=== PATIENT | female | born 1945 | race Caucasian/White ===

== ENCOUNTER → 2020-09-21 | Outpatient (CLI) | payer OTHER ==
[~2020-09-21] MED LIST: AMLO5; ASCO500 PO; ASPI81CH PO; ATOR10 PO; CHLO25B PO; CYAN1000I PO; ERYT333ERA PO; ESTMEDA; GLIM2; GLIM4 PO; HYDACE5 PO; LEVFLO500 PO; LEVSOD100; LEVSOD88 PO; LOSA50; LOSA50 PO; METF500 PO; METO100ER; METO25 PO; Micro-K10 MEQ PO; Norvasc2.5 MG PO; ONGLYZA5 MG PO; PIOG15 PO; RXHYDACE PO; TRIHYD; TRIHYD253A PO
== END | disposition home or self-care (01) ==
LOC: LAB SHORT 10:53 → LAB 10:53
DX: E11.22 Type 2 diabetes mellitus with diabetic chronic kidney disease (principal); N18.9 Chronic kidney disease, unspecified
CPT/HCPCS: 83880

== ENCOUNTER 2021-05-16 10:49 | Inpatient (IN) | payer OTHER ==
[~2021-05-16] VITALS: Ht 157.5 cm; Wt 100.7 kg
[~2021-05-16 10:49] MED LIST changes: -ASPI81CH PO; -ATOR10 PO; -LEVSOD88 PO; -LOSA50 PO; -Norvasc2.5 MG PO
[2021-05-16 11:15] LABS: Source, Urine Catheter
[2021-05-16 11:35] LABS: BASOPHILS ABSOLUTE AUTO 0.11 K/mm3 (0.00-0.23); BASOPHILS PERCENT AUTO 1 % (0-2); EOSINOPHILS ABSOLUTE AUTO 0.55 K/mm3 (0.00-0.68); EOSINOPHILS PERCENT AUTO 3 % (0-6); Hematocrit 36.8 % (33.0-51.0); Hemoglobin 12.4 g/dL (11.5-16.0); IMMATURE GRAN ABSOLUTE AUTO 0.16 K/mm3 (0.00-0.10); IMMATURE GRAN PERCENT AUTO 1 % (0-1); LYMPHOCYTES ABSOLUTE AUTO 3.77 K/mm3 (0.84-5.20); LYMPHOCYTES PERCENT AUTO 19 % (21-46); MONOCYTES ABSOLUTE AUTO 0.83 K/mm3 (0.16-1.47); MONOCYTES PERCENT AUTO 4 % (4-13); Mean Corpuscular HGB 31.6 pg (26.0-34.0); Mean Corpuscular HGB Conc 33.7 g/dL (31.5-36.5); Mean Corpuscular Volume 94 fL (80-100); Mean Platelet Volume 10.8 fL (9.1-12.4); NEUTROPHILS ABSOLUTE AUTO 14.69 K/mm3 (1.96-9.15); NEUTROPHILS PERCENT AUTO 73 % (41-73); Platelet Count 277 K/mm3 (150-400); RDW Coefficient Variation 11.9 % (11.7-14.2); RDW Standard Deviation 40.8 fL (35.1-46.3); Red Blood Cell Count 3.92 M/mm3 (3.80-5.20); White Blood Cell Count 20.11 K/mm3 (4.00-11.30)
[2021-05-16 11:40] LABS: Appearance, Urine Cloudy (Clear); Bilirubin, Urine Neg (Neg); Blood, Urine 5+ (Neg); Color, Urine Yellow (P-Yellow); Glucose Qualitative, Urine Neg (Neg); Ketones, Urine Neg (Neg); Leukocyte Esterase, Urine 3+ (Neg); Nitrite, Urine Pos (Neg); Protein, Urine 4+ (Neg); Urobilinogen, Urine NORM (Normal)
[2021-05-16 11:55] LABS: White Blood Cells, Urine TNTC /hpf (0-5)
[2021-05-16 11:58] LABS: Bacteria Many /hpf; Squamous Epithelial Cells Few /hpf (Few)
[2021-05-16 12:13] LABS: Albumin/Globulin Ratio 0.7 (0.8-1.8); Bilirubin, Total 0.5 mg/dL (0.1-1.0); Bun/Creatinine Ratio 15.4 (12.0-20.0); Calcium, Blood 10.8 mg/dL (8.5-10.1); Creatinine, Blood 2.66 mg/dL (0.40-1.00); Globulin, Blood 4.6 g/dL (2.2-4.0); Potassium, Blood 3.9 mmol/L (3.5-5.5); Total Protein, Blood 7.6 g/dL (6.4-8.2)
[2021-05-16] MEDS ORDERED: INSULANI SC (13:26)
[2021-05-16] MEDS ORDERED: AMLO5 PO (13:27)
[2021-05-16] MEDS ORDERED: CALCITRIOL0.25 MC4 PO (13:28)
[2021-05-16] MEDS ORDERED: LEVSOD88 PO (13:29)
[2021-05-16] MEDS ORDERED: HYDCHL12.5 PO (13:29)
[2021-05-16] MEDS ORDERED: LOSA50 PO (13:30)
[2021-05-16] MEDS ORDERED: GLIP10 PO (13:35)
[2021-05-16] MEDS ORDERED: ATOR10 PO (13:35)
[2021-05-16] MEDS ORDERED: SITA25T2 PO (13:36)
[2021-05-16] MEDS ORDERED: Aspir 8181 MG PO (14:33)
--- NOTE | 2021-05-16 15:30 | NUR ---
Assumed care. Report received from WEB UI DEVELOPER. Pt arrived from ER, transferred to ICU bed without difficulty. Patient is alert and oriented, pleasant and cooperative. Pt is on room air. IV access in R/arm, 20GA A/C, 22GA L/forearm. NS started at 100 ml/hr. Pt denies any pain at this time. Pt hypertensive, PRN labetolol, 10mg IV given. No other acute needs, will continue to monitor. at bedside at time of admit.
--- NOTE | 2021-05-16 18:25 | NUR ---
Shift summary. Pt continues in bed, on room air. IV sites 20GA right A/C, 22GA R/forearm. IV pump running NS 100 ml/hr. Pt resting quietly, arouses easily and is able to use call light. No acute needs at this time, will continue to monitor and report off to nightshift RN.
--- NOTE | 2021-05-16 19:21 | NUR ---
Assumed Care Note: Pt sleeping comfortably with no signs of pain. AOx4, pleasant and cooperative. Upon start of shift, BP have been running high with SBP in the 170 - 180, gave 10mg of Hydralazine.
[2021-05-17 03:28] LABS: BASOPHILS ABSOLUTE AUTO 0.13 K/mm3 (0.00-0.23); BASOPHILS PERCENT AUTO 0 % (0-2); Hematocrit 32.6 % (33.0-51.0); LYMPHOCYTES ABSOLUTE AUTO 1.78 K/mm3 (0.84-5.20); LYMPHOCYTES PERCENT AUTO 4 % (21-46); MONOCYTES ABSOLUTE AUTO 2.74 K/mm3 (0.16-1.47); MONOCYTES PERCENT AUTO 7 % (4-13); Mean Corpuscular HGB 31.9 pg (26.0-34.0); Mean Corpuscular HGB Conc 33.7 g/dL (31.5-36.5); Mean Corpuscular Volume 95 fL (80-100); RDW Coefficient Variation 12.3 % (11.7-14.2); RDW Standard Deviation 42.5 fL (35.1-46.3); Red Blood Cell Count 3.45 M/mm3 (3.80-5.20); White Blood Cell Count 40.24 K/mm3 (4.00-11.30)
[2021-05-17 03:31] LABS: EOSINOPHILS ABSOLUTE AUTO 0.01 K/mm3 (0.00-0.68); EOSINOPHILS PERCENT AUTO 0 % (0-6); IMMATURE GRAN ABSOLUTE AUTO 0.81 K/mm3 (0.00-0.10); IMMATURE GRAN PERCENT AUTO 2 % (0-1); Mean Platelet Volume 11.1 fL (9.1-12.4); NEUTROPHILS ABSOLUTE AUTO 34.77 K/mm3 (1.96-9.15); NEUTROPHILS PERCENT AUTO 87 % (41-73); Platelet Count 184 K/mm3 (150-400)
[2021-05-17 03:48] LABS: Albumin, Blood 2.3 g/dL (3.4-5.0); Albumin/Globulin Ratio 0.6 (0.8-1.8); Bilirubin, Total 0.5 mg/dL (0.1-1.0); Bun/Creatinine Ratio 15.1 (12.0-20.0); Creatinine, Blood 2.98 mg/dL (0.40-1.00); Globulin, Blood 4.1 g/dL (2.2-4.0); Magnesium, Blood 1.3 mg/dL (1.6-2.4); Potassium, Blood 4.3 mmol/L (3.5-5.5); Total Protein, Blood 6.4 g/dL (6.4-8.2)
--- NOTE | 2021-05-17 05:38 | NUR ---
END OF SHIFT SUMMARY NOTE: Pt slept well until midnight where pt complained of pain in her right flank area and right back side. Gave PRN pain meds but did not seem to help, BP steadily climbed with pain. MD notified regarding HTN and pain. Gave 2 mg of Dilaudid which helped. Pt able to void with 1x assist to the commode. Remains cooperative and pleasant.
--- NOTE | 2021-05-17 07:15 | NUR ---
Assumed care. Report received from nightshift RN. Pt resting quietly in bed. On room air. Alert and oriented, able to use call light. Pt has IV access in R/arm 20GA AC, 22GA forearm. IV pump running NS at 100ml/hr. No acute needs at this time, will continue to monitor.
[2021-05-17] MEDS ORDERED: TORSE20 PO (08:44)
[2021-05-17] MEDS ORDERED: POTA10T PO (08:44)
[2021-05-17] MEDS ORDERED: VITAMIN D310 MC4 PO (08:45)
[2021-05-17] MEDS ORDERED: ACET500 PO (08:46)
[2021-05-17] MEDS ORDERED: METAMUCIL POWD798 GM PO (08:46)
--- NOTE | 2021-05-17 12:11 | NUR ---
Spiritual care visit conducted. I provide prayer and therapeutic listening. Patient responds well and shows signs of reudced stress.
--- NOTE | 2021-05-17 12:13 | NUR ---
Spiritual care visit conducted. Patient shares about her daughter battling cancer, her 's recent back surgery and her concerns going forward. I provide therapeutic listening, gentle consumer credit counselor and prayer. Patient responds well and shows signs of increased peace.
--- NOTE | 2021-05-17 18:33 | NUR ---
Shift summary. Pt continues in bed, on room air. Pt up to bedside commode throughout shift. Alert and oriented, able to use call light and communicate needs easily. Pt has IV in R/foream, inserted this shift, other IVs discontinued. IV pump running NS at 100 ml/hr. Pt still hypertensive during shift but BP decreased after PO and PRN BP medications. Current BP 150s systolic. See shift assessment for details. Will continue to monitor and report off to nightshift RN.
--- NOTE | 2021-05-17 19:00 | NUR ---
ASSUME CARE: PT LYING IN BED AND WATCHING TV. SHE IS A&O X 4 AND PLEASANT WITH NO CURRENT COMPLAINTS OR CONCERNS. SHE IS SATING >95% ON RA. HR IS IN THE 80'S AND BP IS CURRENTLY HIGH W/ SBP>170. SHE IS DUE FOR PO HTN MEDS AT 2100 SO WILL REASSESS NEED FOR HTN PRN'S. SHE NEEDS STANDY-BY ASSIST TO THE BATHROOM AND HAD AN OUTPUT OF 100ML OF CLEAR YELLOW URINE BUT NO BM. SOME BRUISING NOTED TO HER RIGHT ARM AND RIGHT LOWER ABDOMEN BUT OTHERWISE SKIN IS WARM, DRY, AND INTACT. NS IS INFUSING AT 100ML/HR. SEE SHIFT ASSESSMENT FOR DETAILS.
[2021-05-18 03:25] LABS: Hematocrit 29.9 % (33.0-51.0); Hemoglobin 9.7 g/dL (11.5-16.0); Mean Corpuscular HGB Conc 32.4 g/dL (31.5-36.5); Mean Corpuscular Volume 96 fL (80-100); Mean Platelet Volume 10.8 fL (9.1-12.4); Platelet Count 201 K/mm3 (150-400); RDW Coefficient Variation 12.3 % (11.7-14.2); RDW Standard Deviation 43.1 fL (35.1-46.3); Red Blood Cell Count 3.13 M/mm3 (3.80-5.20); White Blood Cell Count 26.46 K/mm3 (4.00-11.30)
[2021-05-18 03:47] LABS: Anion Gap 7 mmol/L (6-16); Blood Urea Nitrogen 53 mg/dL (8-24); Bun/Creatinine Ratio 16.1 (12.0-20.0); CO2, Blood 20 mmol/L (21-32); Calcium, Blood 9.6 mg/dL (8.5-10.1); Chloride, Blood 109 mmol/L (98-108); Creatinine, Blood 3.29 mg/dL (0.40-1.00); Glomerular Filtration Rate 14 (60-); Glucose, Blood 169 mg/dL (70-99); Phosphorus, Blood 3.6 mg/dL (2.5-4.9); Sodium, Blood 136 mmol/L (136-145)
--- NOTE | 2021-05-18 07:09 | NUR ---
SHIFT SUMMARY: PT LYING IN BED W/ EYES CLOSED APPEARING TO BE RESTING COMFORTABLY. SHE IS EASILY AROUSABLE AND A&OX3. ON ROOM AIR SHE IS SATING 95%. HR IS IN THE 70'S AND SBP <180. NS CONTINUES TO INFUSE AT 100ML/HR. GAVE FENTANYL PRN ONCE OVERNIGHT FOR RIGHT LOWER ABDOMINAL PAIN AND SHE STATES IT RELIEVED HER PAIN. REPORT GIVEN TO AM NURSE.
--- NOTE | 2021-05-18 09:26 | NUR ---
Assumed care of Pt: AOx4, denies P/N/V, vss except some HTN, PO HTN meds due, will recheck after.
--- NOTE | 2021-05-18 17:43 | NUR ---
AOX4, denies N/V, complains 5/10 R abd pain resolved with 25mcg fent, good appetite, denies SOB, lungs clear/dim, +2 pulses, NSR 80s, BP difficult to manage this shift HTN, 10mg PO hydralazine and PO 10mg/10mg labetelol/torsemide PO order/early metoprolol order and BP still 170/180s SBP MD aware, adequate UOP up to toilet clear yellow.
--- NOTE | 2021-05-19 03:47 | NUR ---
SHIFT SUMMARY: PT HAD RESTFUL SHIFT, TELE OFF, VSS, ABLE TO VERBALIZE NEEDS AND USES CALL LIGHT APPROPRIATELY TO CALL FOR ASSISTANCE TO BSC. NO C/O PAIN OR DISCOMFORT THIS SHIFT, BED LOCKED AND LOW, CALL FERRELL IN REACH. DENZEL BENITES
[2021-05-19 04:01] LABS: Hematocrit 30.8 % (33.0-51.0); Hemoglobin 10.2 g/dL (11.5-16.0); Mean Corpuscular HGB 31.3 pg (26.0-34.0); Mean Corpuscular HGB Conc 33.1 g/dL (31.5-36.5); Mean Corpuscular Volume 95 fL (80-100); Mean Platelet Volume 11.2 fL (9.1-12.4); Platelet Count 238 K/mm3 (150-400); Red Blood Cell Count 3.26 M/mm3 (3.80-5.20); White Blood Cell Count 18.63 K/mm3 (4.00-11.30)
[2021-05-19 04:32] LABS: Albumin, Blood 2.2 g/dL (3.4-5.0); Anion Gap 7 mmol/L (6-16); Blood Urea Nitrogen 52 mg/dL (8-24); Bun/Creatinine Ratio 18.2 (12.0-20.0); CO2, Blood 23 mmol/L (21-32); Chloride, Blood 111 mmol/L (98-108); Creatinine, Blood 2.86 mg/dL (0.40-1.00); Glomerular Filtration Rate 16 (60-); Glucose, Blood 114 mg/dL (70-99); Magnesium, Blood 1.9 mg/dL (1.6-2.4); Phosphorus, Blood 3.4 mg/dL (2.5-4.9); Potassium, Blood 3.9 mmol/L (3.5-5.5); Sodium, Blood 141 mmol/L (136-145)
--- NOTE | 2021-05-19 06:29 | NUR ---
PT MEDICATED WITH PRN MED FOR HTN, SEE MAR AND VS FLOW SHEET. PT HAD GOOD RESULTS AFTER IV HYDRALAZINE, PT PLACED BACK ON TELE FOR IV MED ADMINISTRATION. DENZEL SCHRADER
--- NOTE | 2021-05-19 19:30 | NUR ---
ASSUMPTION OF CARE RECEIVED REPORT FROM AZRA RN. ASSUMED CARE OF PATIENT. PATIENT IN BED WITH EYES CLOSED, NO S/S OF DISTRESS. CALL LIGHT IN REACH. WILL REVIEW ORDERS AND TREAT PRESCRIBED.
--- NOTE | 2021-05-20 02:18 | NUR ---
UPDATE PATIENT IN BED WITH EYES CLOSED, EASILY AWAKENS TO VERBAL STIMULI. NO S/S OF DISTRESS. CALL LIGHT IN REACH.
--- NOTE | 2021-05-20 06:32 | NUR ---
SHIFT SUMMARY PATIENT A/O, DENIED DISCOMFORTS THROUGH SHIFT. AMBULATES INDEPENDENTLY WITH STEADY GAIT TO TOILET AND AROUND ROOM. RESTED FOR SEVERAL HOURS COMFORTABLY. HYDRALAZINE IV GIVEN TWICE FOR SBP GREATER THAN 170. WILL CONTINUE TO MONITOR AND REPORT TO ONCOMING RN.
[2021-05-20 08:43] LABS: Hematocrit 37.7 % (33.0-51.0); Hemoglobin 12.7 g/dL (11.5-16.0); Mean Corpuscular HGB 31.8 pg (26.0-34.0); Mean Corpuscular HGB Conc 33.7 g/dL (31.5-36.5); Mean Corpuscular Volume 95 fL (80-100); Platelet Count 318 K/mm3 (150-400); RDW Coefficient Variation 12.1 % (11.7-14.2); RDW Standard Deviation 42.5 fL (35.1-46.3); Red Blood Cell Count 3.99 M/mm3 (3.80-5.20); White Blood Cell Count 14.14 K/mm3 (4.00-11.30)
[2021-05-20 09:06] LABS: Albumin, Blood 2.7 g/dL (3.4-5.0); Anion Gap 4 mmol/L (6-16); Blood Urea Nitrogen 49 mg/dL (8-24); CO2, Blood 25 mmol/L (21-32); Calcium, Blood 10.8 mg/dL (8.5-10.1); Chloride, Blood 110 mmol/L (98-108); Creatinine, Blood 2.33 mg/dL (0.40-1.00); Glomerular Filtration Rate 20 (60-); Glucose, Blood 118 mg/dL (70-99); Potassium, Blood 4.3 mmol/L (3.5-5.5); Sodium, Blood 139 mmol/L (136-145)
[2021-05-20] MEDS ORDERED: HYDR10 PO (13:11)
[2021-05-20] MEDS ORDERED: METO50 PO (13:13)
[2021-05-20] MEDS ORDERED: VISBIOME 112.51 EACH PO (13:14)
[2021-05-20] MEDS ORDERED: CIPR500 PO (13:16)
== END 2021-05-20 13:30 | disposition home or self-care (01) | DRG 872 ==
LOC: ER 10:49 → ICUW 13:35
PROVIDERS: Emergency Medicine; Nurse Practitioner Acute Care; ADMIT Internal Medicine
DX: A41.51 Sepsis due to Escherichia coli [E. coli] (principal); N13.6 Pyonephrosis; N18.4 Chronic kidney disease, stage 4 (severe); E87.2 Acidosis; N17.9 Acute kidney failure, unspecified; I16.0 Hypertensive urgency; E11.22 Type 2 diabetes mellitus with diabetic chronic kidney disease; R65.20 Severe sepsis without septic shock; Z68.36 Body mass index [BMI] 36.0-36.9, adult; E83.42 Hypomagnesemia; E66.01 Morbid (severe) obesity due to excess calories; E03.9 Hypothyroidism, unspecified; E78.5 Hyperlipidemia, unspecified; E55.9 Vitamin D deficiency, unspecified; I12.9 Hypertensive chronic kidney disease with stage 1 through stage 4 chronic kidney disease, or unspecified chronic kidney disease; Z98.890 Other specified postprocedural states; Z88.0 Allergy status to penicillin; Z88.1 Allergy status to other antibiotic agents; Z88.5 Allergy status to narcotic agent; Z88.8 Allergy status to other drugs, medicaments and biological substances; Z79.899 Other long term (current) drug therapy
CPT/HCPCS: 36415; 51701; 74176; 80053; 80069; 81001; 82947; 83605; 83735; 85025; 85027; 87040; 87077; 87086; 87186; 96361-59; 96365-59; 96375-59; 97110; 97161; 99285-25; A9270; J0360; J0696; J1170; J1644; J1815; J2405; J2550; J3010; J7030

== ENCOUNTER 2021-05-20 22:21 | Inpatient (IN) | payer OTHER ==
[~2021-05-20] VITALS: Ht 157.5 cm; Wt 90.7 kg
[~2021-05-20 22:21] MED LIST changes: +ACET500 PO; +AMLO5 PO; +ATOR10 PO; +Aspir 8181 MG PO; +CALCITRIOL0.25 MC4 PO; +CIPR500 PO; +GLIP10 PO; +HYDCHL12.5 PO; +HYDR10 PO; +INSULANI SC; +LEVSOD88 PO; +LOSA50 PO; +METAMUCIL POWD798 GM PO; +METO50 PO; +POTA10T PO; +SITA25T2 PO; +TORSE20 PO; +VISBIOME 112.51 EACH PO; +VITAMIN D310 MC4 PO
[2021-05-21 01:12] LABS: BASOPHILS ABSOLUTE AUTO 0.14 K/mm3 (0.00-0.23); BASOPHILS PERCENT AUTO 1 % (0-2); EOSINOPHILS ABSOLUTE AUTO 0.29 K/mm3 (0.00-0.68); EOSINOPHILS PERCENT AUTO 2 % (0-6); Hematocrit 34.9 % (33.0-51.0); Hemoglobin 11.9 g/dL (11.5-16.0); IMMATURE GRAN PERCENT AUTO 3 % (0-1); LYMPHOCYTES ABSOLUTE AUTO 2.41 K/mm3 (0.84-5.20); LYMPHOCYTES PERCENT AUTO 15 % (21-46); MONOCYTES ABSOLUTE AUTO 1.42 K/mm3 (0.16-1.47); MONOCYTES PERCENT AUTO 9 % (4-13); Mean Corpuscular HGB 31.8 pg (26.0-34.0); Mean Corpuscular HGB Conc 34.1 g/dL (31.5-36.5); Mean Corpuscular Volume 93 fL (80-100); Mean Platelet Volume 10.2 fL (9.1-12.4); NEUTROPHILS ABSOLUTE AUTO 11.37 K/mm3 (1.96-9.15); NEUTROPHILS PERCENT AUTO 71 % (41-73); Platelet Count 283 K/mm3 (150-400); RDW Coefficient Variation 12.1 % (11.7-14.2); RDW Standard Deviation 41.3 fL (35.1-46.3); Red Blood Cell Count 3.74 M/mm3 (3.80-5.20); White Blood Cell Count 16.13 K/mm3 (4.00-11.30)
[2021-05-21 01:32] LABS: Albumin, Blood 2.8 g/dL (3.4-5.0); Albumin/Globulin Ratio 0.6 (0.8-1.8); Bilirubin, Total 0.4 mg/dL (0.1-1.0); Calcium, Blood 10.5 mg/dL (8.5-10.1); Creatinine, Blood 2.83 mg/dL (0.40-1.00); Globulin, Blood 4.7 g/dL (2.2-4.0); Total Protein, Blood 7.5 g/dL (6.4-8.2)
[2021-05-21 05:35] LABS: BASOPHILS ABSOLUTE AUTO 0.14 K/mm3 (0.00-0.23); BASOPHILS PERCENT AUTO 1 % (0-2); EOSINOPHILS ABSOLUTE AUTO 0.45 K/mm3 (0.00-0.68); EOSINOPHILS PERCENT AUTO 3 % (0-6); Hemoglobin 11.2 g/dL (11.5-16.0); IMMATURE GRAN ABSOLUTE AUTO 0.46 K/mm3 (0.00-0.10); IMMATURE GRAN PERCENT AUTO 3 % (0-1); LYMPHOCYTES ABSOLUTE AUTO 1.78 K/mm3 (0.84-5.20); LYMPHOCYTES PERCENT AUTO 12 % (21-46); MONOCYTES ABSOLUTE AUTO 1.51 K/mm3 (0.16-1.47); MONOCYTES PERCENT AUTO 10 % (4-13); Mean Corpuscular HGB Conc 32.9 g/dL (31.5-36.5); Mean Corpuscular Volume 94 fL (80-100); Mean Platelet Volume 10.4 fL (9.1-12.4); NEUTROPHILS PERCENT AUTO 71 % (41-73); Platelet Count 266 K/mm3 (150-400); RDW Coefficient Variation 12.1 % (11.7-14.2); RDW Standard Deviation 41.8 fL (35.1-46.3); Red Blood Cell Count 3.61 M/mm3 (3.80-5.20); White Blood Cell Count 15.14 K/mm3 (4.00-11.30)
[2021-05-21 05:52] LABS: Albumin, Blood 2.5 g/dL (3.4-5.0); Albumin/Globulin Ratio 0.6 (0.8-1.8); Bilirubin, Total 0.3 mg/dL (0.1-1.0); Bun/Creatinine Ratio 16.8 (12.0-20.0); Calcium, Blood 10.3 mg/dL (8.5-10.1); Creatinine, Blood 3.03 mg/dL (0.40-1.00); Globulin, Blood 4.5 g/dL (2.2-4.0); Potassium, Blood 3.8 mmol/L (3.5-5.5)
--- NOTE | 2021-05-21 17:28 | NUR ---
DAY SHIFT SUMMARY/ADMIT PT ADMITTED TO MED FLOOR FROM ED, ARRIVED WITH . ORIENTED TO ROOM AND SURROUNDINGS. PLEASANT, ALERT, ORIENTED, INDEPENDENT IN ROOM. ARRIVED TO ED D/T RT FLANK PAIN, DENIES ANY PAIN AT THIS TIME. DENIES ANY SOB. STARTED ON TELE, CURRENTLY SINUS/SANDRA AT 58 PER VICE PRESIDENT NETWORK DEVELOPMENT.
--- NOTE | 2021-05-22 03:59 | NUR ---
SHIFT SUMMARY NO ACUTE CHANGES TO REPORT THIS SHIFT. IV ANTIBIOTICS PER ORDERS. PT MEDICATED FOR CHRONIC RIGHT HIP PAIN. PT HAS RESTED MOST OF THE NIGHT AND HAS DENIED NEEDS. INDEPENDENT IN THE ROOM. BED IN LOWEST POSITION, CALL LIGHT WITHIN REACH.
[2021-05-22 04:40] LABS: BASOPHILS ABSOLUTE AUTO 0.17 K/mm3 (0.00-0.23); BASOPHILS PERCENT AUTO 1 % (0-2); EOSINOPHILS ABSOLUTE AUTO 0.63 K/mm3 (0.00-0.68); EOSINOPHILS PERCENT AUTO 4 % (0-6); Hemoglobin 10.2 g/dL (11.5-16.0); IMMATURE GRAN ABSOLUTE AUTO 0.46 K/mm3 (0.00-0.10); IMMATURE GRAN PERCENT AUTO 3 % (0-1); LYMPHOCYTES ABSOLUTE AUTO 2.15 K/mm3 (0.84-5.20); LYMPHOCYTES PERCENT AUTO 14 % (21-46); MONOCYTES ABSOLUTE AUTO 1.78 K/mm3 (0.16-1.47); MONOCYTES PERCENT AUTO 12 % (4-13); Mean Corpuscular HGB Conc 32.9 g/dL (31.5-36.5); Mean Corpuscular Volume 94 fL (80-100); Mean Platelet Volume 10.5 fL (9.1-12.4); NEUTROPHILS PERCENT AUTO 66 % (41-73); Platelet Count 275 K/mm3 (150-400); RDW Coefficient Variation 11.9 % (11.7-14.2); RDW Standard Deviation 41.9 fL (35.1-46.3); Red Blood Cell Count 3.29 M/mm3 (3.80-5.20); White Blood Cell Count 15.19 K/mm3 (4.00-11.30)
[2021-05-22 05:42] LABS: Bun/Creatinine Ratio 14.3 (12.0-20.0); Calcium, Blood 9.9 mg/dL (8.5-10.1); Creatinine, Blood 3.57 mg/dL (0.40-1.00); Potassium, Blood 4.2 mmol/L (3.5-5.5)
[2021-05-22 16:33] LABS: Appearance, Urine Hazy (Clear); Bilirubin, Urine Neg (Neg); Blood, Urine 3+ (Neg); Glucose Qualitative, Urine Neg (Neg); Ketones, Urine Neg (Neg); Leukocyte Esterase, Urine 1+ (Neg); Nitrite, Urine Neg (Neg); Protein, Urine 3+ (Neg); Specific Gravity, Urine 1.015 (1.003-1.022); Urobilinogen, Urine NORM (Normal)
[2021-05-22 16:48] LABS: Color, Urine Pale Yellow (P-Yellow)
--- NOTE | 2021-05-22 16:48 | NUR ---
DAY SHIFT SUMMARY ESTHETICIAN/SPA COORDINATOR REPORT OF SINUS/SANDRA OF 53 EARLY IN DAY, TELE DC'D THIS AFTERNOON. URINALYSIS COLLECTED. PT AWAITING URINALYSIS RESULTS FOR POSSIBLE DISCHARGE. IDEPENDENT IN ROOM. IV FLUIDS INFUSED.
[2021-05-22 16:50] LABS: Bacteria Few /hpf; Squamous Epithelial Cells Mod /hpf (Few); Transitional Epithelial Cells Few /hpf (0-Rare)
--- NOTE | 2021-05-23 04:16 | NUR ---
SHIFT SUMMARY ADMITTED FOR PYELEONEPHRITIS/SEPSIS. DNR CODE. PLAN IS FOR DC HOME W/FAMILY WHEN STABLE FOR DC. SHE IS A&O X4, INDEPENDENT IN ROOM. SHE IS ACHS CHEMSTICKS, LOW SS. ADA DIET. RA. IV ANTIB RX ARE SCHEDULED.
[2021-05-23 04:59] LABS: BASOPHILS ABSOLUTE AUTO 0.12 K/mm3 (0.00-0.23); BASOPHILS PERCENT AUTO 1 % (0-2); EOSINOPHILS ABSOLUTE AUTO 0.79 K/mm3 (0.00-0.68); EOSINOPHILS PERCENT AUTO 7 % (0-6); Hematocrit 30.3 % (33.0-51.0); Hemoglobin 9.9 g/dL (11.5-16.0); IMMATURE GRAN ABSOLUTE AUTO 0.58 K/mm3 (0.00-0.10); IMMATURE GRAN PERCENT AUTO 5 % (0-1); LYMPHOCYTES ABSOLUTE AUTO 3.35 K/mm3 (0.84-5.20); LYMPHOCYTES PERCENT AUTO 28 % (21-46); MONOCYTES ABSOLUTE AUTO 1.31 K/mm3 (0.16-1.47); MONOCYTES PERCENT AUTO 11 % (4-13); Mean Corpuscular HGB 30.9 pg (26.0-34.0); Mean Corpuscular HGB Conc 32.7 g/dL (31.5-36.5); Mean Corpuscular Volume 95 fL (80-100); Mean Platelet Volume 10.5 fL (9.1-12.4); NEUTROPHILS ABSOLUTE AUTO 5.92 K/mm3 (1.96-9.15); NEUTROPHILS PERCENT AUTO 49 % (41-73); Platelet Count 263 K/mm3 (150-400); RDW Coefficient Variation 11.9 % (11.7-14.2); RDW Standard Deviation 41.4 fL (35.1-46.3); White Blood Cell Count 12.07 K/mm3 (4.00-11.30)
[2021-05-23 05:32] LABS: Albumin, Blood 2.3 g/dL (3.4-5.0); Anion Gap 8 mmol/L (6-16); Blood Urea Nitrogen 47 mg/dL (8-24); Bun/Creatinine Ratio 15.4 (12.0-20.0); CO2, Blood 22 mmol/L (21-32); Calcium, Blood 9.7 mg/dL (8.5-10.1); Chloride, Blood 110 mmol/L (98-108); Creatinine, Blood 3.06 mg/dL (0.40-1.00); Glomerular Filtration Rate 15 (60-); Glucose, Blood 93 mg/dL (70-99); Phosphorus, Blood 3.6 mg/dL (2.5-4.9); Potassium, Blood 3.9 mmol/L (3.5-5.5); Sodium, Blood 140 mmol/L (136-145)
--- NOTE | 2021-05-23 08:00 | NUR ---
Pt laying in bed awake a/ox3, pleasant and cooperative with care, follows commands well, denies pain, states she's doing pretty good, had a good night, lungs are clear, dim in bases, resp even and unlabored, no cough noted, hrr, no edema noted, ppp+2, cap refill <3sec, vs stable, afebrile, iv site to rfa, site is clear and patent, infusing fluids as ordered, btx4, abd flat soft nontender, voids without diff, skin c/w/d, maew, up ad rene in room, fco, call light in reach.
[2021-05-23] MEDS ORDERED: DOCU100 PO (11:48)
[2021-05-23] MEDS ORDERED: ONDA4 PO (11:48)
--- NOTE | 2021-05-23 15:29 | NUR ---
PT HAS HAD HER LAST DOSE OF IV ROCEPHIN, IV REMOVED INTACT, HAS BEEN DISCHARGED TO HOME, WENT OVER DISCHARGE INSTRUCTIONS WITH HER, SHE VERBALIZED UNDERSTANDING, GOT HERSELF DRESSED, LEFT VIA WHEELCHAIR WITH PARKING METER MECHANIC IN ATTENDENCE.
== END 2021-05-23 15:32 | disposition home or self-care (01) | DRG 690 ==
LOC: ER 22:21 → MEDS 22:22 → ERHOLD 22:22 → ER 22:22 → MEDS 22:22 → ERHOLD 22:22 → MEDS 05-21 16:13 → ERHOLD 05-21 16:13 → MEDS 05-21 16:32 → ER 05-21 16:32 → MEDS 05-21 16:32
PROVIDERS: Emergency Medicine; Family Medicine; Student in an Organized Health Care Education/Training Program; ADMIT Internal Medicine
DX: N12 Tubulo-interstitial nephritis, not specified as acute or chronic (principal); B96.20 Unspecified Escherichia coli [E. coli] as the cause of diseases classified elsewhere; N18.4 Chronic kidney disease, stage 4 (severe); Z66 Do not resuscitate; I12.9 Hypertensive chronic kidney disease with stage 1 through stage 4 chronic kidney disease, or unspecified chronic kidney disease; E11.22 Type 2 diabetes mellitus with diabetic chronic kidney disease; E03.9 Hypothyroidism, unspecified; Z28.89 Immunization not carried out for other reason; Z98.890 Other specified postprocedural states; Z88.0 Allergy status to penicillin; Z88.5 Allergy status to narcotic agent; Z88.1 Allergy status to other antibiotic agents; Z88.8 Allergy status to other drugs, medicaments and biological substances; Z79.899 Other long term (current) drug therapy; Z79.4 Long term (current) use of insulin; Z79.82 Long term (current) use of aspirin
CPT/HCPCS: 36415; 76770; 80048; 80053; 80069; 81001; 82947; 85025; 87040; 87086; 94760; 96365; 96372; 96375; 96376; 99285; A9270; G0378; J0360; J0696; J1650; J1815; J2405; J3010; J7030

== ENCOUNTER → 2021-06-11 | Outpatient (CLI) | payer OTHER ==
[~2021-06-11] MED LIST changes: +DOCU100 PO; +ONDA4 PO
== END | disposition home or self-care (01) ==
LOC: LAB SHORT 11:21
DX: E03.8 Other specified hypothyroidism (principal); E11.21 Type 2 diabetes mellitus with diabetic nephropathy; E11.22 Type 2 diabetes mellitus with diabetic chronic kidney disease; I13.0 Hypertensive heart and chronic kidney disease with heart failure and stage 1 through stage 4 chronic kidney disease, or unspecified chronic kidney disease; N18.9 Chronic kidney disease, unspecified; I50.20 Unspecified systolic (congestive) heart failure; E78.2 Mixed hyperlipidemia
CPT/HCPCS: 83880

== ENCOUNTER → 2021-08-07 | Outpatient (CLI) | payer OTHER ==
[2021-08-07 11:36] LABS: BASOPHILS ABSOLUTE AUTO 0.09 K/mm3 (0.00-0.23); BASOPHILS PERCENT AUTO 1 % (0-2); EOSINOPHILS ABSOLUTE AUTO 0.22 K/mm3 (0.00-0.68); EOSINOPHILS PERCENT AUTO 2 % (0-6); Hematocrit 37.7 % (33.0-51.0); Hemoglobin 12.7 g/dL (11.5-16.0); IMMATURE GRAN ABSOLUTE AUTO 0.02 K/mm3 (0.00-0.10); IMMATURE GRAN PERCENT AUTO 0 % (0-1); LYMPHOCYTES ABSOLUTE AUTO 2.89 K/mm3 (0.84-5.20); LYMPHOCYTES PERCENT AUTO 30 % (21-46); MONOCYTES ABSOLUTE AUTO 0.81 K/mm3 (0.16-1.47); MONOCYTES PERCENT AUTO 8 % (4-13); Mean Corpuscular HGB 31.4 pg (26.0-34.0); Mean Corpuscular HGB Conc 33.7 g/dL (31.5-36.5); Mean Corpuscular Volume 93 fL (80-100); Mean Platelet Volume 11.1 fL (9.1-12.4); NEUTROPHILS ABSOLUTE AUTO 5.57 K/mm3 (1.96-9.15); NEUTROPHILS PERCENT AUTO 58 % (41-73); Platelet Count 212 K/mm3 (150-400); RDW Coefficient Variation 13.5 % (11.7-14.2); RDW Standard Deviation 45.8 fL (35.1-46.3); Red Blood Cell Count 4.05 M/mm3 (3.80-5.20)
[2021-08-07 11:51] LABS: Albumin/Globulin Ratio 0.9 (0.8-1.8); Bilirubin, Total 0.6 mg/dL (0.1-1.0); Bun/Creatinine Ratio 11.9 (12.0-20.0); Calcium, Blood 10.2 mg/dL (8.5-10.1); Creatinine, Blood 3.29 mg/dL (0.40-1.00); Globulin, Blood 3.3 g/dL (2.2-4.0); Potassium, Blood 3.9 mmol/L (3.5-5.5); Total Protein, Blood 6.3 g/dL (6.4-8.2)
== END ==
LOC: LAB SHORT 11:32
PROVIDERS: Physician Assistant Medical
DX: F44.89 Other dissociative and conversion disorders (principal)
CPT/HCPCS: 80053; 85025

== ENCOUNTER 2022-06-03 07:48 | Day surgery (SDC) | payer OTHER ==
[~2022-06-03] VITALS: Ht 157.5 cm; Wt 93.4 kg
--- NOTE | 2022-06-03 08:14 | NUR ---
06/03/22 0814 Jaycob Christie CALL LIGHT WITHIN REACH. TETRACAIN IN RIGHT EYE AT [phone] AND LANIE AT [phone]
== END 2022-06-03 09:31 | disposition home or self-care (01) ==
LOC: ORSCSDS 07:48
PROVIDERS: Student in an Organized Health Care Education/Training Program
PROC: 08DJ3ZZ Extraction of Right Lens, Percutaneous Approach (ICD-10-PCS; principal; 2022-06-03 09:00)
DX: H25.11 Age-related nuclear cataract, right eye (principal); E11.22 Type 2 diabetes mellitus with diabetic chronic kidney disease; I12.0 Hypertensive chronic kidney disease with stage 5 chronic kidney disease or end stage renal disease; N18.6 End stage renal disease; E03.9 Hypothyroidism, unspecified; I50.9 Heart failure, unspecified; E83.52 Hypercalcemia; Z79.899 Other long term (current) drug therapy
CPT/HCPCS: 82947; J2250; J7040; V2632

== ENCOUNTER → 2022-06-23 | Outpatient (CLI) | payer OTHER ==
[2022-06-23 14:35] LABS: Albumin, Blood 3.1 g/dL (3.4-5.0); Anion Gap 6 mmol/L (6-16); Blood Urea Nitrogen 53 mg/dL (8-24); Bun/Creatinine Ratio 10.9 (12.0-20.0); CO2, Blood 21 mmol/L (21-32); Calcium, Blood 10.7 mg/dL (8.5-10.1); Chloride, Blood 112 mmol/L (98-108); Creatinine, Blood 4.86 mg/dL (0.40-1.00); Glomerular Filtration Rate 9 (60-); Glucose, Blood 179 mg/dL (70-99); Phosphorus, Blood 4.4 mg/dL (2.5-4.9); Potassium, Blood 4.5 mmol/L (3.5-5.5); Sodium, Blood 139 mmol/L (136-145)
[2022-06-24 22:10] LABS: HBSAG SCREEN Negative (Negative); HCV AB 0.2 (0.0-0.9); HEP A AB, IGM Negative (Negative); HEP B CORE AB, IGM Negative (Negative)
== END | disposition home or self-care (01) ==
LOC: LAB SHORT 11:18
PROVIDERS: Internal Medicine Nephrology
DX: N18.5 Chronic kidney disease, stage 5 (principal); R94.5 Abnormal results of liver function studies
CPT/HCPCS: 36415; 80069; 80074; 86317

== ENCOUNTER 2024-03-10 21:30 | Emergency (ER) | payer OTHER ==
[~2024-03-10] VITALS: Ht 157.5 cm; Wt 81.7 kg
[2024-03-10 22:30] LABS: BASOPHILS ABSOLUTE AUTO 0.11 K/mm3 (0.00-0.23); BASOPHILS PERCENT AUTO 1 % (0-2); EOSINOPHILS ABSOLUTE AUTO 0.34 K/mm3 (0.00-0.68); EOSINOPHILS PERCENT AUTO 2 % (0-6); Hematocrit 31.3 % (33.0-51.0); Hemoglobin 10.8 g/dL (11.5-16.0); IMMATURE GRAN ABSOLUTE AUTO 0.28 K/mm3 (0.00-0.10); IMMATURE GRAN PERCENT AUTO 2 % (0-1); LYMPHOCYTES ABSOLUTE AUTO 3.04 K/mm3 (0.84-5.20); LYMPHOCYTES PERCENT AUTO 21 % (21-46); MONOCYTES ABSOLUTE AUTO 1.55 K/mm3 (0.16-1.47); MONOCYTES PERCENT AUTO 11 % (4-13); Mean Corpuscular HGB 34.8 pg (26.0-34.0); Mean Corpuscular HGB Conc 34.5 g/dL (31.5-36.5); Mean Corpuscular Volume 101 fL (80-100); NEUTROPHILS ABSOLUTE AUTO 8.98 K/mm3 (1.96-9.15); NEUTROPHILS PERCENT AUTO 63 % (41-73); NRBC ABSOLUTE 0.02 K/mm3 (0.00-0.02); NRBC Auto 0.1 /100 WBC (0.0-0.2); Platelet Count 309 K/mm3 (150-400); RDW Coefficient Variation 12.5 % (11.7-14.2); RDW Standard Deviation 45.7 fL (35.1-46.3)
[2024-03-10 23:05] LABS: Albumin/Globulin Ratio 0.7 (0.8-1.8); Bilirubin, Total 0.3 mg/dL (0.1-1.0); Bun/Creatinine Ratio 4.1 (12.0-20.0); Calcium, Blood 9.1 mg/dL (8.5-10.1); Creatinine, Blood 9.47 mg/dL (0.40-1.00); Globulin, Blood 4.2 g/dL (2.2-4.0); Potassium, Blood 4.9 mmol/L (3.5-5.5); Total Protein, Blood 7.2 g/dL (6.4-8.2)
[2024-03-11] MEDS ORDERED: NS 1,000 ML IV SCH (03:55)
[2024-03-11 04:32] VITALS: BP 129/61
== END 2024-03-11 05:25 | disposition home or self-care (01) ==
LOC: ER 21:30
PROVIDERS: Emergency Medicine
DX: R42 Dizziness and giddiness (principal); E86.0 Dehydration; E11.22 Type 2 diabetes mellitus with diabetic chronic kidney disease; I12.9 Hypertensive chronic kidney disease with stage 1 through stage 4 chronic kidney disease, or unspecified chronic kidney disease; N18.30 Chronic kidney disease, stage 3 unspecified; E03.9 Hypothyroidism, unspecified; Z79.82 Long term (current) use of aspirin; Z79.899 Other long term (current) drug therapy; Z79.4 Long term (current) use of insulin; Z88.0 Allergy status to penicillin; Z88.5 Allergy status to narcotic agent; Z88.1 Allergy status to other antibiotic agents; Z88.8 Allergy status to other drugs, medicaments and biological substances
CPT/HCPCS: 80053; 85025; 99284-25; J7030

== ENCOUNTER → 2024-04-11 | Outpatient (CLI) | payer OTHER | END | disposition home or self-care (01) | LOC: LAB SHORT 11:53 → LAB 11:53 | DX: N18.6 End stage renal disease (principal) | CPT/HCPCS: 84132 ==